=== PATIENT | female | born 1940 | race Caucasian/White ===

== ENCOUNTER 2022-11-03 01:02 | Inpatient (IN) | payer MEDICARE, BC, OTHER ==
[2022-11-03] VITALS (44 sets, daily range): BP systolic 85–128; BP diastolic 19–94
[~2022-11-03] VITALS: Ht 170.2 cm; Wt 77.1 kg
--- NOTE | 2022-11-03 01:15 | NUR ---
TO ER BED 8. [id number] FROM [facility] ON [place] FOR SOB. PER EMS "PT FOUND TO BE MORE ALTERED THAN NORMAL AND O2 SAT IN THE HIGH 80'S". PT IS AAOX0. PT ON NRB 15L OF O2 BY EMS. CONNECTED TO POX AND HEART MONITOR. RT AND MD AT BEDSIDE.
--- NOTE | 2022-11-03 01:19 | NUR ---
RAC #18G S/L BLOOD, COVID ANTIGEN SENT TO LAB
--- NOTE | 2022-11-03 01:19 | NUR ---
16FR F/C URINE COLLECTED AND SENT TO LAB
[2022-11-03] MEDS ORDERED: VANCOMYCIN 1 GM VIAL ONE (01:21)
[2022-11-03] MEDS ORDERED: AZTREONAM 1 G VIAL ONE (01:21)
[2022-11-03] MEDS ORDERED: ALBUTEROL FS 2.5 MG/3 ML VIAL.NEB ONE (01:22)
[2022-11-03] MEDS ORDERED: IPRATROPIUM NEB FS 0.5 MG/2.5 ML AMPUL.NEB ONE (01:22)
[2022-11-03] MEDS ORDERED: ACETAMINOPHEN 650 MG/SUPP.RECT RC ONE ×2 (01:23→01:30)
[2022-11-03] MEDS ORDERED: methylPREDNISolone SOD SUCC 125 MG/2ML VIAL ONE (01:23)
--- NOTE | 2022-11-03 01:25 | NUR ---
RT AT PT'S BEDSIDE FOR BREATHING TX
[2022-11-03] MEDS ORDERED: AZTREONAM 1 G in IV NS 0.9% 100 ML IV ONE (01:30)
[2022-11-03] MEDS ORDERED: ALBUTEROL FS 2.5 MG/3 ML VIAL.NEB NEB ONE (01:30)
[2022-11-03] MEDS ORDERED: IPRATROPIUM NEB FS 0.5 MG/2.5 ML AMPUL.NEB NEB ONE (01:30)
[2022-11-03] MEDS ORDERED: methylPREDNISolone SOD SUCC 125 MG/2ML VIAL IV ONE (01:30)
[2022-11-03] MEDS ORDERED: VANCOMYCIN 1 GM in IV D5W 250 ML IV ONE (01:30)
[2022-11-03] MEDS ORDERED: IV NS 0.9% 1,000 ML BAG IV ONE (01:30)
[2022-11-03 01:43] LABS: ABG BASE EXCESS 0.7 mmol/L; ABG PO2 48.1 mmHg (75.0-100.0); COHb 0.7 % (0.5-1.5); MetHb 0.3 % (0.0-1.5); O2Hb 83.4 % (94.0-97.0); SITE, ABG Left Radial; VENT MODE, BG 15L NRB
--- NOTE | 2022-11-03 01:47 | NUR ---
MARIA DEL CARMEN YARD DEMURRAGE CLERK AT PT'S BEDSIDE
--- NOTE | 2022-11-03 01:54 | NUR ---
SECOND IV LINE ESTABLISHED, [id number]
--- NOTE | 2022-11-03 01:54 | NUR ---
INFLUENZA SWAB COLLECTED
[2022-11-03 01:58] LABS: BASOPHILS # (AUTO) 0.1 K/uL (0.0-0.2); BASOPHILS % (AUTO) 0.9 % (0.0-2.0); EOSINOPHILS % (AUTO) 0.1 % (0.0-6.0); HEMATOCRIT 46 % (33-45); HEMOGLOBIN 14.6 g/dL (11.5-14.8); LYMPHOCYTES # (AUTO) 1.4 K/uL (0.8-4.8); LYMPHOCYTES % (AUTO) 13.9 % (20.0-44.0); MEAN CORPUSCULAR HGB CONC 32 g/dl (31.0-36.0); MEAN CORPUSCULAR VOLUME 91 fL (82-100); MONOCYTES % (AUTO) 9.9 % (2.0-12.0); NEUTROPHILS # (AUTO) 7.9 K/uL (1.8-8.9); NEUTROPHILS % (AUTO) 75.2 % (43.0-81.0); PLATELET COUNT (AUTO) 133 K/uL (150-450); RED BLOOD CELL COUNT(AUTO) 5.03 MIL/uL (4.0-5.2); WHITE BLOOD COUNT (AUTO) 10.5 K/uL (4.3-11.0)
--- NOTE | 2022-11-03 02:14 | NUR ---
ROOM 255
--- NOTE | 2022-11-03 02:17 | NUR ---
DR Colleen CORDERO AT BEDSIDE
[2022-11-03 02:22] LABS: BILIRUBIN,URINE NEGATIVE (NEGATIVE); COLOR,URINE YELLOW (YELLOW); LEUKOCYTE ESTERASE ,URINE NEGATIVE (NEGATIVE); NITRITE, URINE NEGATIVE (NEGATIVE); PH,URINE 5.5 (5.0-8.0); PROTEIN,URINE NEGATIVE (NEGATIVE); UGLUCOSE NEGATIVE (NEGATIVE); UROBILINOGEN,URINE 0.2 EU/dL (0.2)
--- NOTE | 2022-11-03 02:22 | NUR ---
COVID ANTIGEN POSITIVE; DR. MO NOTIFIED
[2022-11-03 02:23] LABS: CALCIUM, SERUM 8.9 mg/dL (8.5-10.1); CARBON DIOXIDE 26 mmol/L (21-32); CHLORIDE 105 mmol/L (98-107); CREATININE 1.2 mg/dL (0.6-1.3); GLUCOSE 151 mg/dL (74-106); POTASSIUM 3.8 mmol/L (3.5-5.1); SODIUM SERUM 139 mmol/L (136-145); UREA NITROGEN, BLOOD 24 mg/dL (7-18)
[2022-11-03] MEDS ORDERED: ALBUTEROL FS 2.5 MG/0.5 ML VIAL.NEB NEB PRN (02:30)
[2022-11-03] MEDS ORDERED: ONDANSETRON HCL/PF 4 MG/2 ML VIAL IVP PRN (02:30)
[2022-11-03 02:32] LABS: BACTERIA,URINE Few /HPF (None Seen); SQUAMOUS EPITHELIAL CELL,UR Rare /HPF (None Seen)
[2022-11-03 02:39] LABS: ALANINE AMINOTRANSFERASE < 6 U/L (12-78); ALBUMIN 2.6 g/dL (3.4-5.0); ALKALINE PHOSPHATASE 64 U/L (46-116); ASPARTATE AMINOTRANSFERASE 16 U/L (15-37); BILIRUBIN,DIRECT 0.1 mg/dL (0.0-0.2); BILIRUBIN,TOTAL 0.3 mg/dL (0.2-1.0); TOTAL PROTEIN, SERUM 6.3 g/dL (6.4-8.2)
--- NOTE | 2022-11-03 03:15 | NUR ---
BOOTMAKER NOTE RECEIVED ER ADMISSION REPORT FROM [facility]. ALL PERTINENT ADMISSION INFO REGARDING PT NOTED. WILL WAIT FOR PT TO BE TRANSFERRED TO UNIT AND ADDRESS NEEDS ACCORDINGLY. [employer] TRUCK DRIVER MADE AWARE.
--- NOTE | 2022-11-03 03:17 | NUR ---
REPORT GIVEN TO PAUL WHEELER FOR GREGORIO
[2022-11-03] MEDS ORDERED: MEROPENEM 1 G in IV NS 0.9% 100 ML IV SCH ×3 (03:30→15:30)
--- NOTE | 2022-11-03 03:30 | NUR ---
LIGHTOUT EXAMINER NOTE RECEIVED PT FROM ER VIA GURNEY ACCOMPANIED BY 2 ER STAFF AND TRANSFERRED TO BED VIA 2-3 PERSON ASSIST. PT IS A/OX1;CONFUSED BUT AROUSABLE. RECEIVED ON 15L OF 02 VIA NRB MASK WITH 02 SAT AT 94 AT THE TIME OF RECEIVED. COMPREHENSIVE PHYSICAL ASSESSMENT AND PATIENT CARE DONE. CALL LIGHT WITHIN REACH, SAFETY MEASURES AND ISOLATION PRECAUTION IN PLACE, WILL CONTINUE MONITOR AND ASSESS THROUGHOUT THE SHIFT. WILL CARRY OUT MD ORDERS ACCORDINGLY. HOURLY SIGN LANGUAGE INTERPRETER MADE AWARE.
--- NOTE | 2022-11-03 03:36 | NUR ---
PT MOVED TO ICU , ALS PROTOCAL WITHOUT INCIDENT.
[2022-11-03] MEDS ORDERED: MEROPENEM 1 G VIAL IV ONE (03:46)
[2022-11-03] MEDS: IV NS 0.9% 1,000 ML IV SCH ×2 (03:49→14:58)
[2022-11-03] MEDS ORDERED: ACETAMINOPHEN 650 MG/SUPP.RECT RC PRN (04:00)
--- NOTE | 2022-11-03 04:00 | NUR ---
FURNACE CHARGING MACHINE OPERATOR NOTE: COOLING MEASURES RENDERED, PRN MEDICATION GIVEN IN ER, SECURED TYLENOL SUPP Q6H PRN FROM DR. CORDERO. BEAN PICKER MACHINE OPERATOR WELL AWARE.
--- NOTE | 2022-11-03 06:57 | NUR ---
LOG POND WORKER CLOSING NOTE: PATIENT REMAINS IN ROOM IN NO SIGNS OF RESPIRATORY DISTRESS, PATIENT STILL ON 15L OF 02 VIA NRB MASK; TOLERATING WELL SATURATING @ >95% SP02. SAFETY MEASURES IMPLEMENTED, BED IN LOWEST POSITION, LOCKED, SIDE RAILS UP, CALL LIGHT WITHIN REACH. ALL NEEDS AND ORDERS ADDRESSED DURING THE SHIFT. IV ACCESS MAINTAINED INTACT, SECURED AND FLUSHING WELL. ISO PREC MAINTAINED. PATIENT KEPT CLEAN AND COMFORTABLE WITHIN THE SHIFT. PATIENT ENDORSED TO INCOMING SHIFT RN WITH STABLE VITAL SIGN AND FOR CONTINUITY OF CARE.
[2022-11-03] MEDS: LEVOTHYROXINE SODIUM 100 MCG TABLET PO SCH (07:30)
--- NOTE | 2022-11-03 07:30 | NUR ---
OPENING NOTE: REPORT RECEIVED FROM MYRON WHEELER. ORDERS AND LABS REVIEWED DURING REPORT. PT IS COVID POSITIVE ON NON-REBREATHER MASK. PER REPORT PT IS LETHARGIC AND UNABLE TO TAKE ORAL MEDICATIONS. PT IN COVID ISOLATION ROOM. PT CHECKED ON HOURLY AND PRN BY NURSING STAFF.
--- NOTE | 2022-11-03 07:57 | NUR ---
PER ZAIN RT PT PUT ON 10L SIMPLE MASK AT THIS TIME
[2022-11-03] MEDS: ENOXAPARIN SODIUM 40 MG/0.4 ML DISP.SYRIN SQ SCH ×2 (08:52→20:16)
[2022-11-03] MEDS: PANTOPRAZOLE 40 MG VIAL IV SCH (08:52)
[2022-11-03] MEDS ORDERED: ACET-2605 PO (08:56)
[2022-11-03] MEDS ORDERED: ACET-868 PO (08:56)
[2022-11-03] MEDS ORDERED: ESCI5TAB PO (08:57)
[2022-11-03] MEDS ORDERED: DIVA500T54 PO (08:57)
[2022-11-03] MEDS ORDERED: POLY15DR40 EACHEYE (08:57)
[2022-11-03] MEDS ORDERED: BISA10SU11 RC (08:57)
[2022-11-03] MEDS ORDERED: FAMO20TA8 PO (08:57)
[2022-11-03] MEDS ORDERED: QUET50TA PO (08:57)
[2022-11-03] MEDS ORDERED: PREG-57 PO (08:57)
[2022-11-03] MEDS ORDERED: NA P66.6 RC (08:57)
[2022-11-03] MEDS ORDERED: LIDO1ADH82 TP (08:57)
[2022-11-03] MEDS ORDERED: MAGN400O6 PO (08:57)
[2022-11-03] MEDS ORDERED: CHOL100043 PO (08:57)
[2022-11-03] MEDS ORDERED: MELA3TAB41 PO (08:57)
[2022-11-03] MEDS ORDERED: LEVO100T9 PO (08:57)
[2022-11-03] MEDS ORDERED: ONDA4TAB5 PO (08:57)
[2022-11-03] MEDS ORDERED: DIVA250T47 PO (08:57)
[2022-11-03] MEDS ORDERED: POTA8TAB3 PO (08:57)
[2022-11-03] MEDS ORDERED: CARB1TAB31 PO (08:57)
[2022-11-03] MEDS ORDERED: HYDR-4209 PO (08:57)
[2022-11-03] MEDS ORDERED: ESTR1TAB21 PO (08:57)
[2022-11-03] MEDS ORDERED: MULT-447 PO (08:57)
[2022-11-03] MEDS ORDERED: FURO-145 PO (08:57)
[2022-11-03] MEDS ORDERED: ATOR40TA PO (08:57)
[2022-11-03] MEDS ORDERED: APIXABAN 5 MG TABLET PO SCH (09:00)
[2022-11-03 09:47] LABS: ABG BASE EXCESS 0.5 mmol/L; ABG OXYGEN SATURATION 90.7 % (92.0-98.5); ABG PCO2 40.5 mmHg (35.0-45.0); ABG PH 7.411 (7.350-7.450); ABG PO2 59.5 mmHg (75.0-100.0); COHb 0.6 % (0.5-1.5); MetHb 0.4 % (0.0-1.5); O2Hb 89.8 % (94.0-97.0); SITE, ABG Right Radial; VENT MODE, BG Simple Mask
--- NOTE | 2022-11-03 11:20 | NUR ---
PT PLACED ON HIGH FLOW NASAL CANNULA AT 100% 60L AND NRB MASK AT THIS TIME BY ZAIN BATEMAN
[2022-11-03] MEDS: MEROPENEM 1 G in IV NS 0.9% 100 ML IV SCH (12:34)
[2022-11-03] MEDS: DEXAMETHASONE SOD PHOSPHATE 10 MG/ML VIAL IV SCH (12:34)
--- NOTE | 2022-11-03 14:00 | NUR ---
PT CURRENTLY ON HIGH FLOW NASAL CANNULA 60L 65%
[2022-11-03] MEDS ORDERED: ETOMIDATE 2 MG/ML VIAL IV ONE (14:23)
[2022-11-03] MEDS ORDERED: ROCURONIUM BROMIDE 50 MG/5 ML IV ONE (14:24)
--- NOTE | 2022-11-03 18:06 | NUR ---
END OF SHIFT NOTE: PT IS LESS LETHARGIC THAN THIS AM. PT CONTINUES TO BE CONFUSED BUT MUCH MORE INTERACTIVE. PT CONTINUES TO REPEAT THE SAME PHRASE OVER AND OVER AND ISN'T COOPERATIVE. PT CONTINUES TO NEED RESTRAINTS SHE FREQUENTLY ATTEMPTS TO REACH FOR HER OXYGEN TO TAKE IT OFF. PT IS CURRENTLY ON HI FLOW NASAL CANNULA 60L 65%, NO LONGER ON NRB MASK. PT CHECKED ON HOURLY AND PRN BY NURSING STAFF.
--- NOTE | 2022-11-03 19:15 | NUR ---
EMPLOYEE COMMUNICATIONS INTERN NOTES RECEIVED PT FOR CONTINUITY OF CARE. PATIENT A/OX1 NOTED TO BE CONFUSED AND DISORIENTED. PT IN NO S/SX OF ACUTE DISTRESS AT THIS TIME; CURRENTLY ON HIGH FLOW VIA NC ; SETTING PRESCRIBED (60L 65%), WITH 02 SAT >95% AT THIS TIME. IV ACCESS ON R AC#18 & L HAND#20 BOTH INTACT AND FLUSHING WELL WITH ONGOING NS@70MLS/HR; INFUSING WELL. EL CATH IN PLACE, MODERATE URINE OUTPUT NOTED. WITH BILATERAL SOFT RESTRAINTS IN PLACED, MONITORED AND ASSESSED PER PROTOCOL. WILL ENSURE SAFETY MEASURES WITHIN THE SHIFT. PATIENT BED ALARM IS ON. HEAD OF BED ELEVATED. BED IS LOCKED, IN LOWEST POSITION AND SIDE RAILS UP. CALL LIGHT WITHIN REACH OF THE PATIENT. APPLICABLE ISOLATION PRECAUTIONS IN PLACE. WILL CONTINUE TO MONITOR AND REASSESS FOR ANY CHANGES AND WILL CARRY OUT ANY ONGOING AND ACTIVE MD ORDER.
[2022-11-03] MEDS: QUETIAPINE FUMARATE 25 MG TABLET PO SCH (21:27)
[2022-11-03] MEDS: VANCOMYCIN 1 GM in IV D5W 250 ML IV SCH (22:16)
[2022-11-04] VITALS (50 sets, daily range): BP systolic 87–128; BP diastolic 26–99
[2022-11-04] MEDS: IV NS 0.9% 1,000 ML IV SCH (03:11)
--- NOTE | 2022-11-04 04:00 | NUR ---
AED TRAINER NOTE PATIENT REMAINED TO BE IN NO SIGNS OF ACUTE RESPIRATORY DISTRESS , VITAL SIGNS STABLE AT THIS TIME. REGULAR TURNING AND REPOSITIONING DONE Q2H. AM PATIENT CARE DONE. WILL CONTINUE TO MONITOR AND REASSESS FOR ANY CHANGES THROUGHOUT THE SHIFT.
[2022-11-04 05:17] LABS: BASOPHILS # (AUTO) 0.1 K/uL (0.0-0.2); BASOPHILS % (AUTO) 0.5 % (0.0-2.0); HEMATOCRIT 38 % (33-45); HEMOGLOBIN 12.3 g/dL (11.5-14.8); LYMPHOCYTES % (AUTO) 13.7 % (20.0-44.0); MEAN CORPUSCULAR HGB CONC 32 g/dl (31.0-36.0); MEAN CORPUSCULAR VOLUME 91 fL (82-100); MONOCYTES # (AUTO) 0.9 K/uL (0.1-1.30); NEUTROPHILS # (AUTO) 11.4 K/uL (1.8-8.9); NEUTROPHILS % (AUTO) 79.8 % (43.0-81.0); PLATELET COUNT (AUTO) 62 K/uL (150-450); RED BLOOD CELL COUNT(AUTO) 4.21 MIL/uL (4.0-5.2); WHITE BLOOD COUNT (AUTO) 14.3 K/uL (4.3-11.0)
[2022-11-04 05:37] LABS: BILIRUBIN,TOTAL 0.3 mg/dL (0.2-1.0); CALCIUM, SERUM 8.2 mg/dL (8.5-10.1); CREATININE 0.8 mg/dL (0.6-1.3); MAGNESIUM 1.9 mg/dL (1.8-2.4); PHOSPHORUS 2.6 mg/dL (2.5-4.9); POTASSIUM 3.4 mmol/L (3.5-5.1); TOTAL PROTEIN, SERUM 5.3 g/dL (6.4-8.2)
[2022-11-04 05:44] LABS: THYROID STIMULATING HORMONE 3.382 uIU/mL (0.358-3.74)
[2022-11-04 06:16] LABS: ABG BASE EXCESS 0.9 mmol/L; ABG OXYGEN SATURATION 94.7 % (92.0-98.5); ABG PCO2 40.3 mmHg (35.0-45.0); ABG PH 7.418 (7.350-7.450); ABG PO2 74.8 mmHg (75.0-100.0); AaDO2 344.8 mmHg; COHb 0.2 % (0.5-1.5); MetHb 0.3 % (0.0-1.5); O2Hb 94.2 % (94.0-97.0); SITE, ABG Left Radial; VENT MODE, BG HFNC 65%
--- NOTE | 2022-11-04 06:32 | NUR ---
SIGN HANGER NOTE: ABG RESULT ENDORSED TO JOSE MARTINEZ (SHERYL,PRODUCT TESTER) NO CHANGES TO BIPAP SETTINGS PER RECOMMENDATION OF RT. ACKNOWLEDGED. MEDICAL OFFICE PROFESSIONAL INSTRUCTOR MADE AWARE.
--- NOTE | 2022-11-04 06:44 | NUR ---
CHARGING BOARD OPERATOR CLOSING NOTE: PATIENT REMAINS IN ROOM IN NO SIGNS OF RESPIRATORY DISTRESS, MORE AWAKE BUT CONFUSED AND DISORIENTED, STILL ON HIGH FLOW WITH SETTING PRESCRIBED (65% 60L); TOLERATING WELL SATURATING @ >95% SP02. SAFETY MEASURES IMPLEMENTED, BED IN LOWEST POSITION, LOCKED, SIDE RAILS UP, CALL LIGHT WITHIN REACH. ALL NEEDS AND ORDERS ADDRESSED DURING THE SHIFT. IV ACCESS MAINTAINED INTACT, SECURED AND FLUSHING WELL WITH RUNNING IV FLUID ORDERED. ISO PREC MAINTAINED. PATIENT KEPT CLEAN AND COMFORTABLE WITHIN THE SHIFT. PATIENT ENDORSED TO INCOMING SHIFT RN WITH STABLE VITAL SIGN AND FOR CONTINUITY OF CARE.
--- NOTE | 2022-11-04 07:30 | NUR ---
OPENING NOTE: REPORT RECEIVED FROM PAUL WHEELER. ORDERS AND LABS REVIEWED DURING REPORT. PT CHECKED ON HOURLY AND PRN BY NURSING STAFF.
[2022-11-04] MEDS: ENOXAPARIN SODIUM 40 MG/0.4 ML DISP.SYRIN SQ SCH ×2 (08:05→20:28)
[2022-11-04] MEDS: DIVALPROEX SODIUM 250 MG TABLET.DR PO SCH (08:33)
[2022-11-04] MEDS: QUETIAPINE FUMARATE 25 MG TABLET PO SCH ×4 (08:33→21:21)
[2022-11-04] MEDS: LEVOTHYROXINE SODIUM 100 MCG TABLET PO SCH (08:33)
[2022-11-04] MEDS: PANTOPRAZOLE 40 MG VIAL IV SCH (08:34)
[2022-11-04] MEDS: DEXAMETHASONE SOD PHOSPHATE 10 MG/ML VIAL IV SCH (08:34)
[2022-11-04] MEDS: ENSURE ENLIVE CHOC 237 ML CAN PO SCH ×4 (09:00→17:00)
[2022-11-04] MEDS: ESCITALOPRAM OXALATE (10 MG) 10 MG TABLET PO SCH (09:33)
[2022-11-04] MEDS: PREGABALIN 100 MG CAPSULE PO SCH ×3 (09:33→17:42)
[2022-11-04] MEDS: POTASSIUM CL. PREMIX PERIPHER. 50 ML IV SCH ×4 (09:34→14:37)
[2022-11-04] MEDS: CARBIDOPA/LEVODOPA 10/100 MG 1 UDTAB PO SCH ×3 (10:00→17:37)
--- NOTE | 2022-11-04 10:02 | NUR ---
RN MADE MULTIPLE ATTEMPTS TO GIVE PATIENT MEDICATIONS WITH PUDDING, PT REFUSED APPLESAUCE. PT SPIT OUT ANY PUDDING WITH MEDICATIONS IN IT, EVEN CRUSHED MEDS. UNSURE HOW MUCH OF MEDICATIONS PATIENT ACTUALLY SWALLOWED, IF ANY. RN INSTRUCTED PT ON THE IMPORTANCE OF TAKING HER MEDS AND THAT THESE ARE THE SAME MEDS SHE TAKES EVERY DAY AT THE LONG TERM. PT YELLED AT RN TO GET OUT AND LEAVE HER ALONE. WILL CONTINUE TO MONITOR.
[2022-11-04] MEDS ORDERED: POTASSIUM CHLORIDE 20 MEQ TAB.PRT.SR PO SCH (11:00)
--- NOTE | 2022-11-04 12:30 | NUR ---
RN ATTEMPTED TO FEED PATIENT LUNCH AND GIVE PATIENT MEDICATIONS. PT WAS EXTREMELY RUDE AND INAPPROPRIATE TO RN. PT STATED THAT IF SHE HAD SPIT SHE WOULD SPIT IT IN RN'S FACE MASK. RN EXPLAINED THE IMPORTANCE OF EATING AND TAKING MEDICATIONS, PT TOLD RN TO SHUT UP AND GET OUT. PT HAD A BM, RN EXPLAINED TO PATIENT THAT SHE NEEDED TO BE CLEANED UP. 2ND RN CAME IN TO HELP CLEAN UP PATIENT, DURING THIS TIME PATIENT MADE INAPPROPRIATE INSULTING COMMENTS THE ENTIRE TIME SHE WAS BEING CLEANED UP.
[2022-11-04] MEDS: MEROPENEM 1 G in IV NS 0.9% 100 ML IV SCH ×3 (13:41)
[2022-11-04 18:15] LABS: BAND % (MANUAL) 20 % (0.0-5.0); LYMPHOCYTES % (MANUAL) 15 % (16-48); METAMYELOCYTES % 5 % (0-0); MONOCYTES % (MANUAL) 10 % (0-11.0); MYELOCYTES % 3 % (0-0); NEUTROPHILS % (MANUAL) 47 (42-76)
[2022-11-04] MEDS: IV NS 0.9% 250 ML IV PRN (19:06)
--- NOTE | 2022-11-04 19:20 | NUR ---
TRACER LATHE SET UP OPERATOR NOTES RECEIVED PT FOR CONTINUITY OF CARE. PATIENT A/OX1 IN NO S/SX OF ACUTE DISTRESS AT THIS TIME; CURRENTLY ON HIGH FLOW VIA NC; SETTING PRESCRIBED 30L 50%), WITH 02 SAT 100 AT THIS TIME. IV ACCESS ON R AC#18 & L HAND#20 BOTH INTACT AND FLUSHING WELL. EL CATH IN PLACE, SMALL URINE OUTPUT NOTED. WITH BILATERAL SOFT RESTRAINTS IN PLACED, MONITORED AND ASSESSED PER PROTOCOL. WILL ENSURE SAFETY MEASURES WITHIN THE SHIFT. PATIENT BED ALARM IS ON. HEAD OF BED ELEVATED. BED IS LOCKED, IN LOWEST POSITION AND SIDE RAILS UP. CALL LIGHT WITHIN REACH OF THE PATIENT. APPLICABLE ISOLATION PRECAUTIONS IN PLACE. WILL CONTINUE TO MONITOR AND REASSESS FOR ANY CHANGES AND WILL CARRY OUT ANY ONGOING AND ACTIVE MD ORDER.
--- NOTE | 2022-11-04 20:28 | NUR ---
CHILD ADOLESCENT CARE NOTE HELD SCHEDULED DOSE OF LOVENOX FOR 2100; PER [facility] ORDER (DR CORDERO) HOLD LOVENOX DUE TO LOW PLATELET COUNT. BLUEPRINT BLOCKER WELL AWARE.
[2022-11-04] MEDS: ATORVASTATIN 40 MG TABLET PO SCH (21:21)
[2022-11-04] MEDS: DIVALPROEX SODIUM 500 MG TABLET.DR PO SCH (21:21)
[2022-11-04] MEDS: VANCOMYCIN 1 GM in IV D5W 250 ML IV SCH (22:38)
[2022-11-05] VITALS (60 sets, daily range): BP systolic 79–144; BP diastolic 31–92
[2022-11-05] MEDS: MEROPENEM 1 G in IV NS 0.9% 100 ML IV SCH ×2 (00:29→12:12)
--- NOTE | 2022-11-05 04:00 | NUR ---
AGRICULTURAL EQUIPMENT TEST ENGINEER NOTE PATIENT REMAINED TO BE IN NO SIGNS OF ACUTE RESPIRATORY DISTRESS , VITAL SIGNS STABLE AT THIS TIME. REGULAR TURNING AND REPOSITIONING DONE Q2H. AM PATIENT CARE DONE. WILL CONTINUE TO MONITOR AND REASSESS FOR ANY CHANGES THROUGHOUT THE SHIFT.
[2022-11-05 06:36] LABS: BASOPHILS % (AUTO) 0.1 % (0.0-2.0); HEMATOCRIT 37 % (33-45); HEMOGLOBIN 11.8 g/dL (11.5-14.8); LYMPHOCYTES # (AUTO) 1.7 K/uL (0.8-4.8); LYMPHOCYTES % (AUTO) 15.3 % (20.0-44.0); MEAN CORPUSCULAR HGB CONC 32 g/dl (31.0-36.0); MEAN CORPUSCULAR VOLUME 90 fL (82-100); MONOCYTES # (AUTO) 0.5 K/uL (0.1-1.30); MONOCYTES % (AUTO) 4.3 % (2.0-12.0); NEUTROPHILS # (AUTO) 9.2 K/uL (1.8-8.9); NEUTROPHILS % (AUTO) 80.3 % (43.0-81.0); PLATELET COUNT (AUTO) 101 K/uL (150-450); RED BLOOD CELL COUNT(AUTO) 4.07 MIL/uL (4.0-5.2); WHITE BLOOD COUNT (AUTO) 11.4 K/uL (4.3-11.0)
--- NOTE | 2022-11-05 06:41 | NUR ---
PRODUCT HANDLER CLOSING NOTE: PATIENT REMAINS IN ROOM IN NO SIGNS OF RESPIRATORY DISTRESS, STILL ON HIGH FLOW WITH SETTING PRESCRIBED (50% 30L); TOLERATING WELL SATURATING @ >95% SP02. SAFETY MEASURES IMPLEMENTED, BED IN LOWEST POSITION, LOCKED, SIDE RAILS UP, CALL LIGHT WITHIN REACH. ALL NEEDS AND ORDERS ADDRESSED DURING THE SHIFT. IV ACCESS MAINTAINED INTACT, SECURED AND FLUSHING WELL. ISO PREC MAINTAINED. PATIENT KEPT CLEAN AND COMFORTABLE WITHIN THE SHIFT. PATIENT ENDORSED TO INCOMING SHIFT RN WITH STABLE VITAL SIGN AND FOR CONTINUITY OF CARE.
[2022-11-05 07:32] LABS: CALCIUM, SERUM 9.1 mg/dL (8.5-10.1); CREATININE 0.8 mg/dL (0.6-1.3)
--- NOTE | 2022-11-05 07:39 | NUR ---
CODING EDUCATOR OPENING NOTE: PATIENT REMAINS IN ROOM. PT SEMI FOWLERS POSITION. PT CURRENTLY ON HIGH FLOW ( 50% , 30 L) WITH ORDERED SETTINGS TOLERATING WELL. PT ALERT AND ORIENTED X1. PT IS CONFUSED AND DISORIENTED. PT IS CURENTLY SINUS RHYTHM 75 ON TELE MONITOR. PT HAS EL CATHETHER YELLOW COLOR DRAINING TO GRAVITY. PT HAS BILATERAL SOFT WRIST RESTRAINTS. NO SKIN OR CIRCULATION NOTED AT THIS TIME. PT HAS R AC 18, LEFT HAND 20 GUAGE. IV PATENT, INTACT, FLUSHING WELL. ALL SAFETY MEASURES IN PLACE. BED LOCKED IN LOWEST POSITION. SIDE RAILS UP X2. CALL LIGHT WITHIN REACH.
[2022-11-05] MEDS: ENSURE ENLIVE CHOC 237 ML CAN PO SCH ×3 (08:05→17:53)
[2022-11-05] MEDS: PANTOPRAZOLE 40 MG VIAL IV SCH (08:05)
[2022-11-05] MEDS: ESCITALOPRAM OXALATE (10 MG) 10 MG TABLET PO SCH (08:05)
[2022-11-05] MEDS: DIVALPROEX SODIUM 250 MG TABLET.DR PO SCH (08:05)
[2022-11-05] MEDS: DEXAMETHASONE SOD PHOSPHATE 10 MG/ML VIAL IV SCH (08:05)
[2022-11-05] MEDS: LEVOTHYROXINE SODIUM 100 MCG TABLET PO SCH (08:05)
[2022-11-05] MEDS: PREGABALIN 100 MG CAPSULE PO SCH ×3 (08:06→16:36)
[2022-11-05] MEDS: QUETIAPINE FUMARATE 25 MG TABLET PO SCH ×4 (08:06→21:17)
[2022-11-05] MEDS: CARBIDOPA/LEVODOPA 10/100 MG 1 UDTAB PO SCH ×3 (09:37→16:35)
--- NOTE | 2022-11-05 10:00 | NUR ---
rn note spoke with Dr. Johnson. notified him about platelet increase from 62 to 101. said ok to give blood thinner
--- NOTE | 2022-11-05 11:00 | NUR ---
rn note provided son with updates
[2022-11-05] MEDS: APIXABAN 5 MG TABLET PO SCH (16:37)
--- NOTE | 2022-11-05 19:28 | NUR ---
SAMPLE CHECKER CLOSING NOTE: PATIENT REMAINS IN ROOM. PT HEAD OF BED ELEVATED.PT ON 8 L SIMPLE FACE MASK AT THIS TIME TOLERATING WELL AT 94%. PT ALERT AND ORIENTED X1. PT IS CONFUSED AND DISORIENTED. PT IS CURENTLY SINUS RHYTHM 75 ON TELE MONITOR. PT HAS EL CATHETER YELLOW COLOR DRAINING TO GRAVITY. PT HAS BILATERAL SOFT WRIST RESTRAINTS. NO SKIN OR CIRCULATION NOTED AT THIS TIME. PT HAS R AC 18, LEFT HAND 20 GUAGE. IV PATENT, INTACT, FLUSHING WELL. WOUND CARE RENDERED. ALL SAFETY MEASURES IN PLACE. BED LOCKED IN LOWEST POSITION. SIDE RAILS UP X2. CALL LIGHT WITHIN REACH.ENDORSED TO DISTILLERY WORKER RN FOR CONTUITY OF CARE.
--- NOTE | 2022-11-05 19:59 | NUR ---
PATIENT IN ROOM. PT HEAD OF BED ELEVATED.PT ON 8 L SIMPLE FACE MASK AT THIS TIME TOLERATING WELL AT 94%. PT ALERT AND ORIENTED X1. PT IS CONFUSED AND DISORIENTED. PT IS CURRENTLY SINUS RHYTHM 75 WITH BBB ON TELE MONITOR. PT HAS EL CATHETER YELLOW COLOR DRAINING TO GRAVITY. PT HAS BILATERAL SOFT WRIST RESTRAINTS. NO SKIN BREADOWN, CIRCULATION NOTED WITHIN NORMAL AT THIS TIME. PT HAS R AC 18, LEFT HAND 20 G. AGE IV PATENT, INTACT, FLUSHING WELL. WOUND CARE RENDERED. ALL SAFETY MEASURES IN PLACE. BED LOCKED IN LOWEST POSITION. SIDE RAILS UP X2. CALL LIGHT WITHIN REACH
[2022-11-05] MEDS: DIVALPROEX SODIUM 500 MG TABLET.DR PO SCH (21:17)
[2022-11-05] MEDS: ATORVASTATIN 40 MG TABLET PO SCH (21:17)
[2022-11-05] MEDS: ACETAMINOPHEN 325 MG TABLET PO PRN (21:18)
[2022-11-05] MEDS: MUPIROCIN OINT 2% 22 GM TUBE NS SCH (21:19)
[2022-11-06] VITALS (26 sets, daily range): BP systolic 105–149; BP diastolic 45–89
[2022-11-06] MEDS: VANCOMYCIN 1 GM in IV D5W 250 ML IV SCH (00:03)
[2022-11-06] MEDS: MEROPENEM 1 G in IV NS 0.9% 100 ML IV SCH ×2 (01:15→12:42)
[2022-11-06] MEDS: ACETAMINOPHEN 325 MG TABLET PO PRN (04:09)
--- NOTE | 2022-11-06 06:54 | NUR ---
ICU CLOSING NOTE: ALERT TO NAME AND PLACE. CONFUSED TO TIME AND SITUATION. REORIENTED NEEDED. EPISODES OF VERBALIZING FEAR TO BE ALONE. EPISODES OF NOT BEING ABLE TO SLEEP DURING NIGHT PATIENT HAS EPISODES OF HUMMING WHEN ALONE, AND STOPS WHEN STAFF IS NEXT TO HER. EMOTIONAL SUPPORT PROVIDED. TYLENOL GIVEN ORDERED FOR PAIN AND EFFECTIVE X2. PT HEAD OF BED ELEVATED SEMI-FOWLERS POSITION. PT ON 8 L SIMPLE FACE MASK AT THIS TIME TOLERATING WELL AT 98%. PT ALERT AND ORIENTED X1. PT IS CONFUSED AND DISORIENTED. PT IS CURRENTLY SINUS RHYTHM 75 WITH BBB ON TELE MONITOR. PT HAS EL CATHETER YELLOW COLOR DRAINING TO GRAVITY. PT HAS BILATERAL SOFT WRIST RESTRAINTS. NO SKIN BREAKDOWN, CIRCULATION NOTED WITHIN NORMAL AT THIS TIME. PT HAS R AC 18, LEFT HAND 20 G. AGE IV PATENT, INTACT, FLUSHING WELL. NO A/R OF ABX IV. WOUND CARE RENDERED. ALL SAFETY MEASURES IN PLACE. BED LOCKED IN LOWEST POSITION. SIDE RAILS UP X2. CALL LIGHT WITHIN REACH. KEPT CLEAN AND COMFORTABLE.
[2022-11-06 06:56] LABS: CALCIUM, SERUM 9.1 mg/dL (8.5-10.1); CREATININE 0.8 mg/dL (0.6-1.3); POTASSIUM 3.6 mmol/L (3.5-5.1)
[2022-11-06 07:02] LABS: BASOPHILS % (AUTO) 0.3 % (0.0-2.0); EOSINOPHILS % (AUTO) 0.1 % (0.0-6.0); HEMATOCRIT 37 % (33-45); LYMPHOCYTES # (AUTO) 1.4 K/uL (0.8-4.8); LYMPHOCYTES % (AUTO) 15.7 % (20.0-44.0); MEAN CORPUSCULAR HGB CONC 32 g/dl (31.0-36.0); MEAN CORPUSCULAR VOLUME 90 fL (82-100); MONOCYTES # (AUTO) 0.6 K/uL (0.1-1.30); MONOCYTES % (AUTO) 7.1 % (2.0-12.0); NEUTROPHILS # (AUTO) 6.9 K/uL (1.8-8.9); NEUTROPHILS % (AUTO) 76.8 % (43.0-81.0); PLATELET COUNT (AUTO) 120 K/uL (150-450); RED BLOOD CELL COUNT(AUTO) 4.15 MIL/uL (4.0-5.2)
--- NOTE | 2022-11-06 07:15 | NUR ---
ICU/RN PT RECEIVE IN BED, AWAKE, A&OX1 WITH SOME CONFUSION. PT ON 8L O2 SIMPLE MASK SAT 98% ON BEDSIDE MONITOR, SINUS RHYTHM. EL CATH IN PLACE, PATENT AND DRAINING URINE. RIGHT AC 18G AND LEFT HAND 20G IN PLACE, PATENT AND FLUSHING. BED LOCKED AND IN LOWEST POSITION, CALL LIGHT WITHIN REACH, 3 SIDE RAILS UP.
[2022-11-06] MEDS: ENSURE ENLIVE CHOC 237 ML CAN PO SCH ×3 (07:29→17:05)
[2022-11-06] MEDS: MUPIROCIN OINT 2% 22 GM TUBE NS SCH ×2 (08:14→21:59)
[2022-11-06] MEDS: CARBIDOPA/LEVODOPA 10/100 MG 1 UDTAB PO SCH ×3 (08:14→17:03)
[2022-11-06] MEDS: LEVOTHYROXINE SODIUM 100 MCG TABLET PO SCH (08:15)
[2022-11-06] MEDS: PANTOPRAZOLE 40 MG VIAL IV SCH (08:15)
[2022-11-06] MEDS: DEXAMETHASONE SOD PHOSPHATE 10 MG/ML VIAL IV SCH (08:15)
[2022-11-06] MEDS: DIVALPROEX SODIUM 250 MG TABLET.DR PO SCH (08:15)
[2022-11-06] MEDS: PREGABALIN 100 MG CAPSULE PO SCH ×3 (08:15→17:03)
[2022-11-06] MEDS: ESCITALOPRAM OXALATE (10 MG) 10 MG TABLET PO SCH (08:15)
[2022-11-06] MEDS: QUETIAPINE FUMARATE 25 MG TABLET PO SCH ×4 (08:15→22:04)
[2022-11-06] MEDS: APIXABAN 5 MG TABLET PO SCH ×2 (08:16→17:05)
--- NOTE | 2022-11-06 09:50 | NUR ---
RN notes Received patient from ICU with the accompany of [facility]. Patient is A/O x 2. Handover is received. Put patient on telemetry box, showing SR with HR 75/min. BP118/65mmhg. Spo2 98% with 6L oxygen sandy NC, not in respiratory distress. IV sites over left hand and right AC are dry, patent upon NS flush. Call carl is placed within reach. Bed is locked and placed in the lowest position. All safety measeures have been implemented. Will continue monitoring and care.
--- NOTE | 2022-11-06 09:50 | NUR ---
ICU/RN PT TRANSFER TO ROOM 102 PER ACLS PROTOCOL. PT ON 6L O2 NC O2 SAT STABLE ON ARRIVAL. REPORT GIVEN TO BERTA WHEELER.
[2022-11-06] MEDS ORDERED: VANCOMYCIN HCL 0.75 GM in IV D5W 250 ML IV SCH (11:00)
--- NOTE | 2022-11-06 11:00 | NUR ---
RN note Reduced oxygen to 4L via NC, RR around 18/min. Will recheck Spo2.
--- NOTE | 2022-11-06 11:15 | NUR ---
RN note SpO2 95% with 4L oxygen, RR 18/min. Keep monitoring.
[2022-11-06] MEDS: LINEZOLID 600 MG TABLET PO SCH ×2 (12:30→22:03)
--- NOTE | 2022-11-06 15:00 | NUR ---
RN note Further reduced oxygen to 3L via NC, SpO2 97%, RR 18/min.
[2022-11-06] MEDS: IV D5W 1,000 ML IV PRN (18:41)
[2022-11-06] MEDS: POTASSIUM CHLORIDE 20 MEQ TAB.PRT.SR PO SCH (18:41)
--- NOTE | 2022-11-06 18:55 | NUR ---
RN notes Patient is resting in bed without active complaint. SpO2 95% with 3L oxygen given via NC, RR 17/min. Telemetry showed SR with HR 75/min. Right AC and left hand IV sites are dry and patent, D5 started on right AC site at 50mL/hr. No choking observed today. Call carl is placed within reach. Bed is locked and placed in the lowest position. All safety measures have been implemented. Will endorse PM nurse to continue monitoring and care.
--- NOTE | 2022-11-06 21:00 | NUR ---
CURBING STONECUTTER OPENING NOTE PATIENT WAS TRANSFERRED UNDER MY CARE DURING THE SHIFT. PATIENT IS IN BED, SLEEPING. EASILY BEING AROUSED. SHE IS ORIENTED TO HER NAME ONLY. AO X 1. SHE IS ON 3 LPM OF OXYGEN VIA NC, O2 SAT IS ABOVE 93%; TOLERATED WELL. NO S/S OF SOB OR DISTRESS. PATIENT IS ON EXTERNAL MECHANISM ASSEMBLER AND THE HEART RHYTHM ON THE MONITOR IS SR HR AT 70s. IV ACCESS ONE IS AT HER RIGHT AC, #18G; AND ANOTHER ONE IS ON HER LEFT HAND, #20G; PATENT AND INTACT. R AC IS RUNNING D5W @ 50 ML/HR. PATIENT'S RIGHT ARM AND HAND HAVE DEPENDANT EDEMA, ELEVATED THE RIGHT ARM WITH ONE PILLOW. NO SIGNS OF IV INFILTRATION. NO REDNESS AT HER IV SITE. PATIENT'S EL CATHETER DRAINING CLEAR YELLOW COLOR URINE FREELY BY GRAVITY. SAFETY MEASURES ARE IN PLACED: BED IN LOWEST AND LOCKED POSITION; SIDE RAILS UP X 2; BED ALARM IS SET; CALL LIGHT AND TABLE ARE WITHIN REACH. WILL CONTINUE MONITOR PATIENT'S CONDITION AND PROVIDE THE CARE SHE NEEDS.
[2022-11-06] MEDS: DIVALPROEX SODIUM 500 MG TABLET.DR PO SCH (22:02)
[2022-11-06] MEDS: ATORVASTATIN 40 MG TABLET PO SCH (22:02)
[2022-11-07] VITALS: BP 110/68
[2022-11-07] MEDS ORDERED: MEROPENEM 1 G VIAL IV ONE (00:42)
[2022-11-07] MEDS: MEROPENEM 1 G in IV NS 0.9% 100 ML IV SCH ×2 (00:49→12:51)
[2022-11-07] MEDS: IV NS 0.9% 250 ML IV PRN (01:39)
[2022-11-07 04:00] VITALS: BP 154/85
[2022-11-07 06:51] LABS: BASOPHILS % (AUTO) 0.3 % (0.0-2.0); EOSINOPHILS % (AUTO) 0.1 % (0.0-6.0); HEMATOCRIT 38 % (33-45); HEMOGLOBIN 12.4 g/dL (11.5-14.8); LYMPHOCYTES # (AUTO) 1.7 K/uL (0.8-4.8); LYMPHOCYTES % (AUTO) 26.8 % (20.0-44.0); MEAN CORPUSCULAR HGB CONC 33 g/dl (31.0-36.0); MEAN CORPUSCULAR VOLUME 89 fL (82-100); MONOCYTES # (AUTO) 0.8 K/uL (0.1-1.30); MONOCYTES % (AUTO) 12.1 % (2.0-12.0); NEUTROPHILS # (AUTO) 3.9 K/uL (1.8-8.9); NEUTROPHILS % (AUTO) 60.7 % (43.0-81.0); PLATELET COUNT (AUTO) 106 K/uL (150-450); RED BLOOD CELL COUNT(AUTO) 4.27 MIL/uL (4.0-5.2); WHITE BLOOD COUNT (AUTO) 6.4 K/uL (4.3-11.0)
[2022-11-07 07:11] LABS: CALCIUM, SERUM 8.9 mg/dL (8.5-10.1); CARBON DIOXIDE 29 mmol/L (21-32); CHLORIDE 111 mmol/L (98-107); CREATININE 0.7 mg/dL (0.6-1.3); GLUCOSE 104 mg/dL (74-106); POTASSIUM 3.9 mmol/L (3.5-5.1); SODIUM SERUM 146 mmol/L (136-145); UREA NITROGEN, BLOOD 15 mg/dL (7-18)
--- NOTE | 2022-11-07 07:24 | NUR ---
BRICKLAYER'S ASSISTANT CLOSING NOTE PATIENT IS IN BED, SLEEPING. EASILY BEING AROUSED. SHE IS ORIENTED TO HER NAME ONLY. SHE IS ON 3 LPM OF OXYGEN VIA NC, O2 SAT IS ABOVE 93%; TOLERATED WELL. NO S/S OF SOB OR DISTRESS. PATIENT IS ON EXTERNAL FARE COLLECTOR AND THE HEART RHYTHM ON THE MONITOR IS SR HR AT 70s. IV ACCESS ONE IS AT HER RIGHT AC, #18G; AND ANOTHER ONE IS ON HER LEFT HAND, #20G; PATENT AND INTACT. R AC IS RUNNING D5W @ 50 ML/HR. PATIENT'S RIGHT ARM AND HAND HAVE DEPENDANT EDEMA, ELEVATED THE RIGHT ARM WITH ONE PILLOW. NO SIGNS OF IV INFILTRATION. NO REDNESS AT HER IV SITE. PATIENT'S EL CATHETER DRAINING CLEAR YELLOW COLOR URINE FREELY BY GRAVITY. SAFETY MEASURES ARE IN PLACED: BED IN LOWEST AND LOCKED POSITION; SIDE RAILS UP X 2; BED ALARM IS SET; CALL LIGHT AND TABLE ARE WITHIN REACH. WILL ENDORSE NEXT SHIFT NURSE FOR CONTINUING PATIENT CARE.
[2022-11-07] MEDS: LEVOTHYROXINE SODIUM 100 MCG TABLET PO SCH (07:37)
[2022-11-07 08:00] VITALS: BP 156/96
--- NOTE | 2022-11-07 08:00 | NUR ---
UI SOFTWARE DEVELOPER OPENING NOTE PATIENT IS IN BED, SHE IS ORIENTED TO HER NAME ONLY. SHE IS ON 3 LPM OF OXYGEN VIA NC, O2 SAT IS ABOVE 93%; TOLERATED WELL. NO S/S OF SOB OR DISTRESS. PATIENT IS ON EXTERNAL PAPER MACHINE BACKTENDER AND THE HEART RHYTHM ON THE MONITOR IS SR HR AT 70s. IV ACCESS AT HER RIGHT AC, #18G, NO SIGNS OF IV INFILTRATION. NO REDNESS AT HER IV SITE. PATIENT'S EL CATHETER DRAINING CLEAR YELLOW COLOR URINE FREELY BY GRAVITY. SAFETY MEASURES ARE IN PLACED: BED IN LOWEST AND LOCKED POSITION; SIDE RAILS UP X 2; BED ALARM IS SET; CALL LIGHT AND TABLE ARE WITHIN REACH.
[2022-11-07] MEDS: ENSURE ENLIVE CHOC 237 ML CAN PO SCH ×3 (08:05→17:56)
[2022-11-07] MEDS: DEXAMETHASONE SOD PHOSPHATE 10 MG/ML VIAL IV SCH (09:00)
[2022-11-07] MEDS: POTASSIUM CHLORIDE 20 MEQ TAB.PRT.SR PO SCH (09:03)
[2022-11-07] MEDS: PREGABALIN 100 MG CAPSULE PO SCH ×3 (09:03→16:07)
[2022-11-07] MEDS: DIVALPROEX SODIUM 250 MG TABLET.DR PO SCH ×2 (09:03→22:08)
[2022-11-07] MEDS: APIXABAN 5 MG TABLET PO SCH ×2 (09:04→16:07)
[2022-11-07] MEDS: ESCITALOPRAM OXALATE (10 MG) 10 MG TABLET PO SCH (09:05)
[2022-11-07] MEDS: PANTOPRAZOLE 40 MG/PACK PACK PO SCH (09:16)
[2022-11-07] MEDS: MUPIROCIN OINT 2% 22 GM TUBE NS SCH ×2 (09:16→22:04)
[2022-11-07] MEDS: QUETIAPINE FUMARATE 25 MG TABLET PO SCH ×4 (09:17→22:08)
[2022-11-07] MEDS: CARBIDOPA/LEVODOPA 10/100 MG 1 UDTAB PO SCH ×3 (09:17→16:05)
[2022-11-07] MEDS: LINEZOLID 600 MG TABLET PO SCH ×2 (09:17→22:08)
--- NOTE | 2022-11-07 10:18 | NUR ---
WOUND CARE CONSULT: REVIEWED CHART, NURSING DOCUMENTATION AND PHOTO WHICH INDICATES SACRAL DEEP TISSUE INJURY WHICH EXTENDS TO BUTTOCKS. RECOMMENDATIONS MADE FOR SKIN PROTECTION AND WOUND CARE. DISCUSSED WITH NURSING STAFF. PT NOTED TO HAVE MULTPLE CO-MORBIDITIES INCLUDING ACUTE HYPOXEMIC RESPIRATORY FAILURE, COVID 19 INFECTION, RENAL FAILURE, CORONARY ARTERY DISEASE WITH AICD, HYPERTENSION, PARKINSON'S POLYNEUROPATHY, METABOLIC ENCEPHALOPATHY, PSYCHIATRIC HISTORY, AND MALNUTRITION. DUE TO MULTIPLE CO-MORBIDITIES, FURTHER SKIN BREAKDOWN MAY BE UNAVOIDABLE. [facility]. IN AGREEMENT WITH PLAN OF CARE. Addendum: 11/07/22 at 1040 by TEOFILO OVIEDO WNDNU PT IS UNCOOPERATIVE AT TIMES PER NURSING STAFF.
[2022-11-07] MEDS ORDERED: Z GUARD REMEDY 4 OZ OINT TP PRN (11:00)
--- NOTE | 2022-11-07 12:42 | NUR ---
RN NOTE SON JUAN UPDATED ON PT'S CONDITION. PER SON REQUEST, HE WOULD LIKE PT TO RETURN TO HER PREVIOUS FACILITY UPON DISCHARGE.
[2022-11-07 13:02] LABS: BAND % (MANUAL) 8 % (0.0-5.0); LYMPHOCYTES % (MANUAL) 18 % (16-48); METAMYELOCYTES % 1 % (0-0); MONOCYTES % (MANUAL) 12 % (0-11.0); MYELOCYTES % 1 % (0-0); NEUTROPHILS % (MANUAL) 59 (42-76)
[2022-11-07 13:03] LABS: EOSINOPHILS % (MANUAL) 1 % (0-4)
[2022-11-07 13:28] VITALS: BP 112/66
--- NOTE | 2022-11-07 14:05 | NUR ---
CHRISTOPHE RN OPENING NOTE PATIENT WAS TRANSFERRED UNDER MY CARE DURING THE SHIFT. PATIENT IS IN BED, SLEEPING. EASILY BEING AROUSED. SHE IS ORIENTED TO HER NAME ONLY. AO X 1. SHE IS ON 3 LPM OF OXYGEN VIA NC, O2 SAT IS ABOVE 93%; TOLERATED WELL. NO S/S OF SOB OR DISTRESS. PATIENT IS ON EXTERNAL FENCE BUILDER AND THE HEART RHYTHM ON THE MONITOR IS SR HR AT 70s. IV ACCESS ONE IS AT HER RIGHT AC, #18G; AND ANOTHER ONE IS ON HER LEFT HAND, #20G; PATENT AND INTACT. R AC IS RUNNING D5W @ 50 ML/HR. PATIENT'S RIGHT ARM AND HAND HAVE DEPENDANT EDEMA, ELEVATED THE RIGHT ARM WITH ONE PILLOW. NO SIGNS OF IV INFILTRATION. NO REDNESS AT HER IV SITE. PATIENT'S EL CATHETER DRAINING CLEAR YELLOW COLOR URINE FREELY BY GRAVITY. SAFETY MEASURES ARE IN PLACED: BED IN LOWEST AND LOCKED POSITION; SIDE RAILS UP X 2; BED ALARM IS SET; CALL LIGHT AND TABLE ARE WITHIN REACH. WILL CONTINUE MONITOR PATIENT'S CONDITION AND PROVIDE THE CARE SHE NEEDS. Addendum: 11/07/22 at 1855 by TED RICE RN CORRECTION RN OPENING NOTE RECEIVED PT IN BED, ASLEEP, AO X 1, O2 SATURATION 96% ON 3L OXYGEN VIA NC.NO SIGNS OF IV INFILTRATION. PATIENT HAS EL CATHETER. SAFETY MEASURES ARE IN PLACED: BED IN LOWEST AND LOCKED POSITION; SIDE RAILS UP X 2; BED ALARM IS SET; CALL LIGHT AND TABLE ARE WITHIN REACH. Addendum: 11/07/22 at 1859 by TED RICE RN CORRECTION. RN OPENING NOTE. PT IN BED ORIENTED X 1. IV SITE RIGHT AC #18G, FLUSHES WELL, NO S/S INFLAMMATION. OXYGEN LEVEL 96% ON 3L VIA NC.
[2022-11-07 16:00] VITALS: BP 104/49
[2022-11-07] MEDS: IV D5W 1,000 ML IV PRN (18:16)
--- NOTE | 2022-11-07 18:59 | NUR ---
RN CLOSING NOTE PT IN BED, ORIENTED X 1, IV RIGHT AC #18G, FLUSHES WELL. ON CROSSING FLAGMAN SR. BED LOCKED, IN LOWEST POSITION, SAFETY PRECAUTIONS IMPLEMENTED
--- NOTE | 2022-11-07 19:40 | NUR ---
DIELECTRIC TESTER OPENING NOTE RECEIVED PATIENT IN BED; AWAKE, ALERT AND ORIENTED X 1. ON O2 INHALATION @ 3 LPM VIA NASAL CANNULA SATURATING @ 94%; TOLERATING WELL. NO S/S OF SOB OR CARDIAC DISTRESS NOTED. ON TELE MONITOR WITH CURRENT READING OF SR HR-75 BPM. WITH IV ACCESS ON RIGHT AC 18G; PATENT AND INTACT RUNNING WITH D5W REGULATED @ 50 ML/HR. WITH ANOTHER IV ACCESS ON LEFT HAND 20G; PATENT, INTACT AND SALINE LOCKED. WITH DEPENDENT EDEMA NOTED ON RIGHT ARM AND LEFT HAND; ELEVATED WITH PILLOW. SAFETY MEASURES IMPLEMENTED: HEAD OF BED ELEVATED, CALL LIGHT AND TABLE WITHIN REACH, SIDE RAILS UP X 3, BED IN LOWEST LOCKED POSITION. WILL CONTINUE TO MONITOR.
[2022-11-07 20:00] VITALS: BP 104/57
[2022-11-07] MEDS: ATORVASTATIN 40 MG TABLET PO SCH (22:09)
[2022-11-07] MEDS: DIVALPROEX SODIUM 500 MG TABLET.DR PO SCH (22:12)
[2022-11-08] VITALS (7 sets, daily range): BP systolic 116–143; BP diastolic 43–99
[2022-11-08] MEDS: MEROPENEM 1 G in IV NS 0.9% 100 ML IV SCH ×2 (00:14→13:06)
[2022-11-08 06:37] LABS: BASOPHILS % (AUTO) 0.1 % (0.0-2.0); EOSINOPHILS % (AUTO) 0.1 % (0.0-6.0); HEMATOCRIT 38 % (33-45); HEMOGLOBIN 12.4 g/dL (11.5-14.8); LYMPHOCYTES # (AUTO) 2.1 K/uL (0.8-4.8); LYMPHOCYTES % (AUTO) 30.3 % (20.0-44.0); MEAN CORPUSCULAR HGB CONC 33 g/dl (31.0-36.0); MEAN CORPUSCULAR VOLUME 89 fL (82-100); MONOCYTES # (AUTO) 0.8 K/uL (0.1-1.30); MONOCYTES % (AUTO) 11.8 % (2.0-12.0); NEUTROPHILS % (AUTO) 57.7 % (43.0-81.0); PLATELET COUNT (AUTO) 158 K/uL (150-450); RED BLOOD CELL COUNT(AUTO) 4.32 MIL/uL (4.0-5.2)
--- NOTE | 2022-11-08 07:00 | NUR ---
YOUTH CAREER SPECIALIST CLOSING NOTE PATIENT IN BED; AWAKE, A/O X 1. STILL ON O2 INHALATION @ 3 LPM VIA NASAL CANNULA SATURATING @ 94%; WELL TOLERATED. NO S/S OF SOB OR CARDIAC DISTRESS NOTED. ON TELE MONITOR WITH CURRENT READING OF SR HR-75 BPM. WITH IV ACCESS ON LEFT HAND; 20G; PATENT AND INTACT RUNNING WITH D5W REGULATED @ 50 ML/HR. WITH EL CATHETER IN PLACE DRAINING BY GRAVITY TO CLEAR YELLOW URIN OUTPUT. SAFETY MEASURES MAINTAINED: HEAD OF BED ELEVATED, CALL LIGHT AND TABLE WITHIN REACH, SIDE RAILS UP X 3, BED IN LOWEST LOCKED POSITION. ENDORSED TO MORNING SHIFT FOR GREGORIO.
[2022-11-08] MEDS: LEVOTHYROXINE SODIUM 100 MCG TABLET PO SCH (07:39)
[2022-11-08 07:57] LABS: CALCIUM, SERUM 8.7 mg/dL (8.5-10.1); CARBON DIOXIDE 29 mmol/L (21-32); CHLORIDE 108 mmol/L (98-107); CREATININE 0.6 mg/dL (0.6-1.3); GLUCOSE 101 mg/dL (74-106); POTASSIUM 4.1 mmol/L (3.5-5.1); SODIUM SERUM 143 mmol/L (136-145); UREA NITROGEN, BLOOD 17 mg/dL (7-18)
--- NOTE | 2022-11-08 08:00 | NUR ---
FORMING PRESS OPERATOR OPENING NOTE RECEIVED PATIENT IN BED; AWAKE, ALERT AND ORIENTED X 1. ON O2 INHALATION @ 3 LPM VIA NASAL CANNULA SATURATING @ 94%; TOLERATING WELL. NO S/S OF SOB OR CARDIAC DISTRESS NOTED. ON TELE MONITOR WITH CURRENT READING OF SR HR-76 BPM. WITH IV ACCESS ON RIGHT AC 18G; PATENT AND INTACT RUNNING WITH D5W REGULATED @ 50 ML/HR. WITH ANOTHER IV ACCESS ON LEFT HAND 20G; SAFETY MEASURES IMPLEMENTED: HEAD OF BED ELEVATED, CALL LIGHT AND TABLE WITHIN REACH, SIDE RAILS UP X 3, BED IN LOWEST LOCKED POSITION. WILL CONTINUE TO MONITOR.
[2022-11-08] MEDS: ENSURE ENLIVE CHOC 237 ML CAN PO SCH ×3 (08:08→17:09)
[2022-11-08] MEDS: APIXABAN 5 MG TABLET PO SCH ×2 (08:23→16:28)
[2022-11-08] MEDS: LINEZOLID 600 MG TABLET PO SCH ×2 (08:23→20:19)
[2022-11-08] MEDS: ESCITALOPRAM OXALATE (10 MG) 10 MG TABLET PO SCH (08:23)
[2022-11-08] MEDS: PANTOPRAZOLE 40 MG/PACK PACK PO SCH (08:24)
[2022-11-08] MEDS: QUETIAPINE FUMARATE 25 MG TABLET PO SCH ×4 (08:24→21:04)
[2022-11-08] MEDS: POTASSIUM CHLORIDE 20 MEQ TAB.PRT.SR PO SCH (08:24)
[2022-11-08] MEDS: DEXAMETHASONE SOD PHOSPHATE 10 MG/ML VIAL IV SCH (08:24)
[2022-11-08] MEDS: PREGABALIN 100 MG CAPSULE PO SCH ×3 (08:24→16:28)
[2022-11-08] MEDS: MUPIROCIN OINT 2% 22 GM TUBE NS SCH ×2 (08:26→20:18)
[2022-11-08] MEDS: CARBIDOPA/LEVODOPA 10/100 MG 1 UDTAB PO SCH ×3 (08:26→16:28)
--- NOTE | 2022-11-08 10:00 | NUR ---
REPORT GIVEN TO RAGHAVENDRA FOR CONTINUING OF CARE
--- NOTE | 2022-11-08 10:30 | NUR ---
GARMENT PARTS CUTTER MACHINE NOTES EDGE BLACKER REPORT FROM LIZY RN, PATIENT ALERT AND VERBALLY RESPONSIVE, NO SOB NOTED, RESPIRATION EVEN AND UNLABORED, DENIES ANY PAIN. LEFT HAND PIV NOTED PATENT AND INTACT, WITH IV FLUIDS RUNNINGS ORDERED, FLUSHES WELL. SEEN BY DR. CORDERO, WITH NEW ORDER TO D/C RESTRAINTS. NOTED AND CARRIED OUT. SAFETY MEASURES IN PLACED. CALL LIGHT WITHIN REACH. PLAN OF CARE CONTINUE.
--- NOTE | 2022-11-08 19:39 | NUR ---
WOUND TREATMENT RN OPENING NOTE RECEIVED PATIENT IN BED; AWAKE, ALERT AND ORIENTED X 1. ON O2 INHALATION @ 3 LPM VIA NASAL CANNULA SATURATING, TOLERATING WELL. NO S/S OF SOB OR CARDIAC DISTRESS NOTED. ON TELE MONITOR WITH CURRENT READING OF SR HR 75. WITH IV ACCESS LEFT HAND 20G INTACT. SAFETY MEASURES IMPLEMENTED: HEAD OF BED ELEVATED, CALL LIGHT AND TABLE WITHIN REACH, SIDE RAILS UP X 3, BED IN LOWEST LOCKED POSITION. PLAN OF CARE CONTINUE.
[2022-11-08 20:08] LABS: BAND % (MANUAL) 3 % (0.0-5.0); EOSINOPHILS % (MANUAL) 1 % (0-4); LYMPHOCYTES % (MANUAL) 19 % (16-48); MONOCYTES % (MANUAL) 9 % (0-11.0); NEUTROPHILS % (MANUAL) 68 (42-76)
[2022-11-08] MEDS: DIVALPROEX SODIUM 500 MG TABLET.DR PO SCH (21:03)
[2022-11-08] MEDS: ATORVASTATIN 40 MG TABLET PO SCH (21:04)
--- NOTE | 2022-11-08 23:17 | NUR ---
SAFETY PROFESSIONAL CLOSING NOTE PATIENT NOTED SLEEPING, ALERT AND VERBALLY RESPONSIVE WHEN AWAKEN. ON O2 INHALATION @ 3 LPM VIA NASAL CANNULA, TOLERATING WELL. NO S/S OF SOB OR CARDIAC DISTRESS NOTED. ON TELE MONITOR WITH CURRENT READING OF SR HR 75. WITH IV ACCESS LEFT HAND 20G PATENT AND INTACT. SAFETY MEASURES IMPLEMENTED: HEAD OF BED ELEVATED, CALL LIGHT AND TABLE WITHIN REACH, SIDE RAILS UP X 3, BED IN LOWEST LOCKED POSITION. WILL ENDORSE TO BUSINESS APPLICATIONS ANALYST NURSE FOR GREGORIO.
[2022-11-09] VITALS: BP 127/77
[2022-11-09] MEDS: MEROPENEM 1 G in IV NS 0.9% 100 ML IV SCH ×2 (00:20→13:39)
[2022-11-09 04:00] VITALS: BP 132/63
--- NOTE | 2022-11-09 06:53 | NUR ---
TEMPLATE INSPECTOR CLOSING NOTE PT AWAKE IN BED. A/O X1 AND ABLE TO MAKE NEEDS KNOWN. PT STABLE ON O2 @ 2LPM VIA NC, TOLERATING WELL. NO SOB OR S/S OF RESPIRATORY DISTRESS. BREATHING EVEN AND UNLABORED. ON EXTERNAL SEXOLOGIST READING SR 75 BPM. IV ACCESS L HAND 20G, INTACT AND PATENT. WITH EL IN PLACE DRAINING URINE BY GRAVITY, DRAINED 1250 CC THIS SHIFT. ALL DUE MEDS GIVEN ORDERED. KEPT CLEAN AND DRY. SAFETY PRECAUTIONS IN PLACE AT ALL TIMES. BED IN LOWEST LOCKED POSITION, HOB ELEVATED, SIDE RAILS UP X3, AND CALL LIGHT AND TABLE WITHIN REACH. ALL NEEDS MET AT THIS TIME AND WILL ENDORSE TO ONCOMING NURSE FOR GREGORIO.
--- NOTE | 2022-11-09 07:53 | NUR ---
RN OPENING NOTES: PT ASLEEP IN BED EASILY ROUSED, A/O X1 AND ABLE TO MAKE NEEDS KNOWN. PT STABLE ON O2 @ 2LPM VIA NC, TOLERATING WELL. NO SOB OR S/S OF RESPIRATORY DISTRESS. BREATHING EVEN AND UNLABORED. 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 IV ACCESS L HAND 20G, INTACT AND PATENT. EL IN PLACE DRAINING URINE BY GRAVITY, DRAINING CLEAR YELLOW URINE. SAFETY PRECAUTIONS IN PLACE AT ALL TIMES. BED IN LOWEST LOCKED POSITION, HOB ELEVATED, SIDE RAILS UP X3, AND CALL LIGHT AND TABLE WITHIN REACH, WILL CONT WITH PLAN OF CARE DURING SHIFT.
[2022-11-09 08:00] VITALS: BP 115/90
[2022-11-09] MEDS: QUETIAPINE FUMARATE 25 MG TABLET PO SCH ×2 (08:24→13:36)
[2022-11-09] MEDS: PREGABALIN 100 MG CAPSULE PO SCH ×2 (08:25→13:36)
[2022-11-09] MEDS: LEVOTHYROXINE SODIUM 100 MCG TABLET PO SCH (08:25)
[2022-11-09] MEDS: LINEZOLID 600 MG TABLET PO SCH (08:25)
[2022-11-09] MEDS: ESCITALOPRAM OXALATE (10 MG) 10 MG TABLET PO SCH (08:25)
[2022-11-09] MEDS: POTASSIUM CHLORIDE 20 MEQ TAB.PRT.SR PO SCH (08:25)
[2022-11-09] MEDS: PANTOPRAZOLE 40 MG/PACK PACK PO SCH (08:25)
[2022-11-09] MEDS: DIVALPROEX SODIUM 250 MG TABLET.DR PO SCH (08:25)
[2022-11-09] MEDS: DEXAMETHASONE SOD PHOSPHATE 10 MG/ML VIAL IV SCH (08:26)
[2022-11-09] MEDS: APIXABAN 5 MG TABLET PO SCH (08:28)
[2022-11-09] MEDS: ENSURE ENLIVE CHOC 237 ML CAN PO SCH ×2 (09:13→13:36)
[2022-11-09] MEDS: MUPIROCIN OINT 2% 22 GM TUBE NS SCH (09:23)
[2022-11-09] MEDS: CARBIDOPA/LEVODOPA 10/100 MG 1 UDTAB PO SCH ×2 (09:23→13:00)
[2022-11-09 15:20] LABS: BASOPHILS % (AUTO) 0.1 % (0.0-2.0); HEMATOCRIT 38 % (33-45); HEMOGLOBIN 12.4 g/dL (11.5-14.8); LYMPHOCYTES % (AUTO) 16.9 % (20.0-44.0); MEAN CORPUSCULAR HGB CONC 33 g/dl (31.0-36.0); MEAN CORPUSCULAR VOLUME 88 fL (82-100); MONOCYTES # (AUTO) 0.3 K/uL (0.1-1.30); MONOCYTES % (AUTO) 4.8 % (2.0-12.0); NEUTROPHILS # (AUTO) 4.6 K/uL (1.8-8.9); NEUTROPHILS % (AUTO) 78.2 % (43.0-81.0); PLATELET COUNT (AUTO) 218 K/uL (150-450); RED BLOOD CELL COUNT(AUTO) 4.31 MIL/uL (4.0-5.2); WHITE BLOOD COUNT (AUTO) 5.8 K/uL (4.3-11.0)
[2022-11-09 15:34] LABS: CREATININE 0.8 mg/dL (0.6-1.3); POTASSIUM 4.8 mmol/L (3.5-5.1)
--- NOTE | 2022-11-09 16:30 | NUR ---
OVERHEAD FOREMAN DC NOTES: GAVE REPORT BY PHONE TO [facility], [facility]. VITALS WNL, NO S/S OF SOB, NO ACUTE DISTRESS NOTED. PT INITIALLY REFUSES TO GO TO SNF, SPOKE TO LUIS E HERRERA AND LINDSAY DAUGHTER IN [place] BY PHONE. PT AGREED EVENTUALLY. EL LEFT IN PLACE, IV ACCESS AND ID BAND DC. SACRAL DTI CLEANED AND DRESSED, PHOTO PLACED IN CHART. PT TRANSPORTED BY [facility], RUN# [id number].
[2022-11-09 19:13] LABS: BAND % (MANUAL) 5 % (0.0-5.0); LYMPHOCYTES % (MANUAL) 18 % (16-48); MONOCYTES % (MANUAL) 2 % (0-11.0); NEUTROPHILS % (MANUAL) 74 (42-76); REACTIVE LYMPHOCYTES 1 % (0-0)
== END 2022-11-09 16:21 | DRG 871 ==
LOC: ER 01:11 → ICU 03:01 → TELE1 11-06 09:46
PROVIDERS: ADMIT Internal Medicine; ATTEND Internal Medicine
DX: A41.89 Other specified sepsis (principal); E43 Unspecified severe protein-calorie malnutrition; G92.8 Other toxic encephalopathy; U07.1 COVID-19; J96.01 Acute respiratory failure with hypoxia; J15.9 Unspecified bacterial pneumonia; N39.0 Urinary tract infection, site not specified; Z16.39 Resistance to other specified antimicrobial drug; E87.0 Hyperosmolality and hypernatremia; N17.9 Acute kidney failure, unspecified; R65.20 Severe sepsis without septic shock; E86.0 Dehydration; E03.9 Hypothyroidism, unspecified; Z95.810 Presence of automatic (implantable) cardiac defibrillator; E66.9 Obesity, unspecified; Z68.26 Body mass index [BMI] 26.0-26.9, adult; Z22.322 Carrier or suspected carrier of Methicillin resistant Staphylococcus aureus; G20 Parkinson's disease; F02.80 Dementia in other diseases classified elsewhere, unspecified severity, without behavioral disturbance, psychotic disturbance, mood disturbance, and anxiety; D69.6 Thrombocytopenia, unspecified; I50.9 Heart failure, unspecified; B95.2 Enterococcus as the cause of diseases classified elsewhere; R13.10 Dysphagia, unspecified; E87.6 Hypokalemia; I11.0 Hypertensive heart disease with heart failure; Z86.718 Personal history of other venous thrombosis and embolism; Z79.01 Long term (current) use of anticoagulants; H91.90 Unspecified hearing loss, unspecified ear
CPT/HCPCS: 36415; 36600; 71045-TC; 80048-TC; 80053-TC; 80076-TC; 80202-TC; 81001; 82550-TC; 82803-TC; 83605-TC; 83615-TC; 83735-TC; 83880; 84100-TC; 84443-TC; 84484-TC; 85025-TC; 85378-TC; 85730-TC; 86140-TC; 87040-TC; 87081-TC; 87086-TC; 92526; 92611-TC; 93307-TC; 93970-TC; 94760-TC; 94799-TC; 97110-TC; 97112-TC; 97530-TC; C9113; C9803; G0378; J1100; J1650; J2185; J2930; J3370; J3480; J3490; J7030; J7050; J7060; J7070